=== PATIENT | female | born 1990 | race Caucasian/White ===

== ENCOUNTER 2022-09-05 10:29 | Outpatient (CLI) | payer OTHER, SELFPAY ==
--- NOTE | ~2022-09-05 | XR_ITS ---
EXAMINATION: XR hysterosalpingogram DATE: 09/05/2022 12:12 INDICATION: Fertility testing TECHNIQUE: Multiple fluoroscopic images were obtained during contrast infusion into the endometrial c anal of the uterus by the primary physician. Fluoroscopy exposure time was 0.4 minutes. A total of 6 fluoroscopic images were recorded. Total DAP was 1.837 Gycm^2 FINDINGS: The uterine cavity demonstrates normal morphology. The fallopian tubes are normal in caliber and pat ent bilaterally. There is normal spillage of contrast into the peritoneum on both sides. IMPRESSION: 1. Normal hysterosalpingogram. Reviewed, dictated and finalized at location A.
[2022-09-05 11:54] LABS: Beta HCG Quantitative < 2.39 mIU/ML
== END 2022-09-05 10:30 | disposition home or self-care (01) ==
LOC: ANHLAB 10:32
PROVIDERS: Visit Provider Obstetrics & Gynecology Gynecology
DX: Z31.49 Encounter for other procreative investigation and testing (principal)
CPT/HCPCS: 36415; 58340; 74740; 84702; Q9966

== ENCOUNTER 2025-04-04 17:12 | Emergency (ER) | payer OTHER, SELFPAY ==
[2025-04-04 17:34] VITALS: BP 143/93; PULSE 113; RESP 16; TEMP 37.6; O2SAT 100
--- NOTE | 2025-04-04 18:15 | ED.URI ---
HPI - URI/Sore Throat General Chief Complaint: Upper Respiratory Infection Stated Complaint: Fever URI symptoms Time Seen by Provider: 04/04/25 18:16 Source: patient and RN notes reviewed Mode of arrival: ambulatory Limitations: no limitations History of Present Illness HPI Narrative: 35 year female presented for complaint of body aches, sinus pressure/congestion, cough, fever/chills. Onset 5 days. cough is productive of yellow sputum. Denies sob, wheezing, n/v/d. Not taking anything for symptoms. Pt had IUI, negative home preg test this evening. MD elicited complaint: cough Related Data Home Medications ?Medication ?Instructions ?Recorded ?Confirmed ?Last Taken ?Type progesterone micronized 200 mg mg 04/04/25 Unknown History capsule Allergies Allergy/AdvReac Type Severity Reaction Status Date / Time No Known Allergies Allergy Verified 04/04/25 17:35 Review of Systems Review of Systems: CONSTITUTIONAL: Endorses malaise, body aches, chills, sweats, fever EYES: Denies visual changes, redness, or discharge ENT: Reports rhinorrhea, congestion, otalgia, sore throat CARDIOVASCULAR: Denies chest pain, palpitations, edema RESPIRATORY: Reports cough, post nasal drainage. Denies dyspnea GASTROINTESTINAL: Denies abdominal pain, nausea, vomiting, diarrhea SKIN: Denies rash or itching Exam Narrative: GENERAL: mildly Ill-appearing, nontoxic no acute distress. EYES: conjunctivae clear ENT: Mucous membranes moist. TM pearly montes with dull light reflex bilaterally; no tragal tenderness. Oropharynx not erythematous without lesions or exudate, no drooling, no hoarseness, no trismus, uvula midline. No tripod positioning, muffled voice, soft palate or pharyngeal wall bulging NECK: Supple. No lymphadenopathy CHEST: Clear to auscultation, breath sounds equal. No wheezing, rhonchi, rales, or stridor. No respiratory distress, speaks in full sentences. HEART: Regular rate and rhythm. No murmur heard. SKIN: Warm, dry, no rash. NEURO: Alert and oriented x3. PSYCH: Normal mood and affect Course Course Level of Care: Express Care Visit Vital Signs Vital signs: Vital Signs Temperature 99.6 F 04/04/25 17:34 Pulse Rate 113 H 04/04/25 17:34 Respiratory Rate 16 04/04/25 17:34 Blood Pressure 143/93 H 04/04/25 17:34 Pulse Oximetry 100 04/04/25 17:34 Temperature 99.6 F 04/04/25 17:34 Pulse Rate 113 H 04/04/25 17:34 Respiratory Rate 16 04/04/25 17:34 Blood Pressure 143/93 H 04/04/25 17:34 Pulse Oximetry 100 04/04/25 17:34 MDM MDM Narrative Medical decision making narrative: Discussed physical exam findings. POS flu A. Advised supportive measures and signs/symptoms to go to the ER. Pt is appropriate for outpt treatment and f/u. Differential Diagnosis Differential Diagnosis: Influenza, covid, sinusitis, OM, strep pharyngitis, URI Discharge Plan Discharge Clinical Impression: Influenza Patient Disposition: Home Condition: Stable Instructions: Influenza (ED) Additional Instructions: Influenza positive You should avoid crowds until you are fever free for 24 hours without the use of fever reducing medications, or the symptoms are improved Rest. Drink plenty of fluids. Tylenol 1000mg every 8 hours as needed for pain/fever Recommend Flonase spray and Zyrtec (or Claritin/Ewelina) for sinus pressure/congestion over the counter Cough syrup may cause drowsiness; avoid driving or take it at night time. Follow up with your primary care provider as needed in 1-2 weeks Go to the ER for worsening symptoms or concerns Patient Language: French Prescriptions: No Action progesterone micronized 200 mg capsule Follow-up/Referrals: PHYSICIAN,ALUMINUM POURER [Primary Care Provider, Internal Medicine] Time of Disposition: 18:22
[2025-04-04 18:19] LABS: EDINFLUASCREEN Positive (Negative); EDINFLUBSCREEN Negative (Negative)
== END 2025-04-04 18:24 | disposition home or self-care (01) ==
PROVIDERS: Emergency Provider Nurse Practitioner Family
DX: J10.1 Influenza due to other identified influenza virus with other respiratory manifestations (principal)
CPT/HCPCS: 87804; 99203; G0463